=== PATIENT | female | born 1945 | race Caucasian/White ===

== ENCOUNTER 2016-06-02 10:07 | Emergency (ER) | payer MEDICARE, OTHER ==
--- NOTE | 2016-06-02 10:37 | EDM.PDOC ---
[id number]: LIGHT HEADED/DIZZY/FLUTTERY FEELING Time Seen by Provider: 06/02/16 10:20 Source: Reports: Patient History Limitations: Reports: No limitations - History of Present Illness INITIAL COMMENTS - FREE TEXT/NARRATIVE: 70-year-old female with intermittent palpitations and lightheadedness with some slight nausea has been having symptoms for several weeks. She discussed this with her primary physician 4 days ago and he tried to reassure her. This morning she had another episode of dizziness and lightheadedness, felt she was having palpitations and called the first responders. They mainly reassured her but she wanted to be checked out. No fevers or chills, some nausea but no vomiting. No chest pain, she does have intermittent shortness of breath. Severity: mild Associated Symptoms: Reports: loss of appetite, malaise, shortness of breath ( Intermittent), weakness. Denies: chest pain, cough, diaphoresis, fever/chills - Related Data Allergies/ADRs: Allergies Allergy/AdvReac Type Severity Reaction Status Date / Time doxycycline Allergy Cannot Verified 06/02/16 10:16 Remember Penicillins Allergy Difficulty Verified 06/02/16 10:16 Breathing Sulfa (Sulfonamide Allergy Rash Verified 06/02/16 10:16 Antibiotics) Home Meds: Home Meds Omeprazole [Prilosec] 20 mg PO BID 10/19/13 [History] Calcium Citrate/Vitamin D3 [Calcium Cit-Vit D 315-200] 1 each PO DAILY 12/04/13 [History] Cholecalciferol (Vitamin D3) [Vitamin D3] 400 unit PO DAILY 12/04/13 [History] Diclofenac Sodium [Voltaren 1% Gel] 1 applic TP QID PRN 12/04/13 [History] Fluticasone Propionate [Flovent] 1 puff IH BID PRN 12/04/13 [History] Multivit-Min/FA/Lycopene/Lut [Centrum Silver] 1 each PO DAILY 12/04/13 [History] Nitroglycerin [Nitrostat] 0.4 mg SL ASDIRECTED PRN 05/31/14 [History] Ranitidine [Zantac] 150 mg PO BEDTIME 05/31/14 [History] Past Medical History HEENT History: Reports: Cataract, Impaired vision Cardiovascular History: Reports: Arrhythmia, Heart murmur, Hypertension Gastrointestinal History: Reports: Bowel obstruction, GERD 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: Musculoskeletal History: Reports: Osteoarthritis Neurological History: Reports: Vertigo - Past Surgical History HEENT Surgical History: Reports: Cataract surgery Cardiovascular Surgical History: Reports: Other (see below) Other Cardiovascular Surgeries/Procedures: angiogram GI Surgical History: Reports: Cholecystectomy, Colonoscopy, EGD Female Surgical History: Reports: Hysterectomy, Salpingo-oophorectomy Social & Family History - Tobacco Use Smoking Status *Q: Never Smoker Second Hand Smoke Exposure: No - Alcohol Use Days Per Week of Alcohol Use: 0 - Recreational Drug Use Recreational Drug Use: No ED ROS GENERAL - Review of Systems Review Of Systems: See Below Constitutional: Reports: malaise, weakness. Denies: fever, chills Respiratory: Reports: Shortness of Breath Cardiovascular: Reports: Palpitations. Denies: Chest pain GI/Abdominal: Reports: Nausea. Denies: Abdominal pain : Reports: no symptoms Neurological: Reports: Dizziness. Denies: Headache Psychiatric: Reports: No symptoms ED EXAM, GENERAL - Physical Exam Exam: See Below Exam Limited By: No limitations General Appearance: alert, no apparent distress Eye Exam: bilateral eye: EOMI Respiratory/Chest: no respiratory distress, lungs clear Cardiovascular: regular rate, rhythm. No: extra beats GI/Abdominal: normal bowel sounds, soft, non tender Extremities: normal inspection. No: pedal edema Neurological: alert, oriented, no motor/sensory deficits Psychiatric: normal affect, normal mood Skin Exam: Warm, Dry EKG INTERPRETATION Rhythm: NSR Rate (beats/min): 114 Course - Vital Signs Last Recorded V/S: Last Vital Signs Temp 96.8 F 06/02/16 10:14 Pulse 86 06/02/16 13:29 Resp 15 06/02/16 13:29 BP 175/95 H 06/02/16 13:29 Pulse Ox 100 06/02/16 13:29 - Orders/Labs/Meds Orders: Active Orders 24 hr Category Date Time Status EKG Documentation Completion [RC] ASDIRECTED Care 06/02/16 11:09 Active EKG 12 Lead [EK] Routine Ther 06/02/16 11:09 Ordered Labs: Laboratory Tests 06/02/16 06/02/16 Range/Units 11:14 11:14 WBC 8.1 (4.5-11.0) K/uL RBC 4.70 (3.30-5.50) M/uL Hgb 14.2 (12.0-15.0) g/dL Hct 43.3 (36.0-48.0) % MCV 92 (80-98) fL MCH 30 (27-31) pg MCHC 33 (32-36) % Plt Count 199 (150-400) K/uL Neut % (Auto) 75 H (36-66) % Lymph % (Auto) 15 L (24-44) % [place] % (Auto) 8 H (2-6) % Eos % (Auto) 1 L (2-4) % Baso % (Auto) 1 (0-1) % Sodium 146 (140-148) mmol/L Potassium 4.4 (3.6-5.2) mmol/L Chloride 107 (100-108) mmol/L Carbon Dioxide 28 (21-32) mmol/L Anion Gap 10.6 (5.0-14.0) mmol/L BUN 14 (7-18) mg/dL Creatinine 1.0 (0.6-1.0) mg/dL Est Cr Clr Drug Dosing 41.40 mL/min Estimated GFR (MDRD) 55 L (>60) Glucose 95 (74-106) mg/dL Calcium 8.9 (8.5-10.1) mg/dL Total Bilirubin 0.6 (0.2-1.0) mg/dL AST 21 (15-37) U/L ALT 22 (12-78) U/L Alkaline Phosphatase 65 (46-116) U/L Troponin I 0.114 H* (0.000-0.056) ng/mL Total Protein 7.2 (6.4-8.2) g/dL Albumin 3.8 (3.4-5.0) g/dL Globulin 3.4 (2.3-3.5) g/dL Albumin/Globulin Ratio 1.1 L (1.2-2.2) Meds: Medications Discontinued Medications Generic Name Dose Route Start Last Admin Trade Name Freq PRN Reason Stop Dose Admin Aspirin 324 mg 06/02/16 12:20 06/02/16 12:24 Aspirin PO 06/02/16 12:21 324 mg ONETIME ONE Administration - Re-Assessments/Exams Free Text/Narrative Re-Assessment/Exam: 06/02/16 10:36 EKG was done that showed normal sinus tachycardia. No recent lab work was done so a CBC, CMP and troponin will be obtained and if those are reassuring she'll be set up for a Holter monitor unless she shows arrhythmias while waiting for lab results. 06/02/16 12:46 Patient was monitored for over 2 hours and continued to be in a sinus rhythm. CBC and CMP were reassuring, only abnormality being a GFR of 55. Her troponin however came back slightly elevated at 0.11. I discussed her case with the hospitalist service from [place] and after reviewing her records had an abnormal Cardiolite 2 years ago. I was informed that she had a normal angiogram following the Cardiolite and a post Cardiolite cardiology consultation listed very similar symptoms to what she is having now. After discussing this with the patient we elected to put her on a Holter monitor for 48 hours and followup with her primary care after the test. Departure - Departure Time of Disposition: 13:37 Disposition: Home, Self-Care 01 Condition: good Clinical Impression: Palpitations, Dizziness Instructions: Palpitations, [id number], Dizziness, [id number] Referrals: Mahendra Gentile MD [Primary Care Provider] - Forms: ED Department Discharge Care Plan Goals: To monitor for 48 hours as prescribed. Recheck next week after the test is completed, or return anytime if worsening or concerns. Continue your regular medications. - My Orders Last 24 Hours: My Active Orders 06/02/16 11:09 EKG Documentation Completion [RC] ASDIRECTED EKG 12 Lead [EK] Routine - Assessment/Plan Last 24 Hours: My Active Orders 06/02/16 11:09 EKG Documentation Completion [RC] ASDIRECTED EKG 12 Lead [EK] Routine
[2016-06-02] MEDS ORDERED: Aspirin 81 MG Tab.Chew PO ONE (12:20)
[2016-06-02 13:29] VITALS: BP 175/95
== END 2016-06-02 11:25 | disposition home or self-care (01) ==
LOC: JP.ED 10:07
DX: R00.2 Palpitations (principal); R42 Dizziness and giddiness; R01.1 Cardiac murmur, unspecified; I10 Essential (primary) hypertension; K21.9 Gastro-esophageal reflux disease without esophagitis; M19.90 Unspecified osteoarthritis, unspecified site; Z98.49 Cataract extraction status, unspecified eye; Z90.49 Acquired absence of other specified parts of digestive tract; Z90.710 Acquired absence of both cervix and uterus; Z79.899 Other long term (current) drug therapy; Z88.0 Allergy status to penicillin; Z88.2 Allergy status to sulfonamides; Z88.8 Allergy status to other drugs, medicaments and biological substances
CPT/HCPCS: 36415; 80053; 84484; 85025; 93005; 93225; 93226; 99285; A9270; 93010; 99284

== ENCOUNTER 2017-08-10 08:45 | Emergency (ER) | payer MEDICARE, OTHER ==
--- NOTE | 2017-08-10 10:40 | EDM.PDOC ---
ED HPI GENERAL MEDICAL PROBLEM - General Chief Complaint: Chest Pain Stated Complaint: CHEST PAIN, DIFFICULTY BREATHING, PAIN IN LEFT ARM Time Seen by Provider: 08/10/17 09:10 Source of Information: Reports: Patient History Limitations: Reports: No Limitations - History of Present Illness INITIAL COMMENTS - FREE TEXT/NARRATIVE: 72-year-old female comes in with intermittent chest pressure and tightness, sometimes radiating to the left arm. It's been going on for the last 5 days, she 's been under increased stress with pressure at home. She had a similar episode 2 or 3 years ago and thinks she had some testing. While here in the emergency room she has slight pressure but no shortness of breath or diaphoresis. Denies nausea or vomiting. No fevers or chills, denies cough. She is leaving on a trip for a couple of days coming up and is anxious about that as well, her has COPD and is very difficult to take care of. Onset: Gradual (Over the past several days) Chest Pain Score (Numeric/FACES): 6 - Related Data Allergies Allergy/AdvReac Type Severity Reaction Status Date / Time doxycycline Allergy Cannot Verified 08/10/17 09:10 Remember Penicillins Allergy Difficulty Verified 08/10/17 09:10 Breathing Sulfa (Sulfonamide Allergy Rash Verified 08/10/17 09:10 Antibiotics) Home Meds: Home Meds Omeprazole [Prilosec] 20 mg PO BID 10/19/13 [History] Calcium Citrate/Vitamin D3 [Calcium Cit-Vit D 315-200] 1 each PO DAILY 12/04/13 [History] Cholecalciferol (Vitamin D3) [Vitamin D3] 400 unit PO DAILY 12/04/13 [History] Diclofenac Sodium [Voltaren 1% Gel] 1 applic TP QID PRN 12/04/13 [History] Fluticasone Propionate [Flovent] 1 puff IH BID PRN 12/04/13 [History] Multivit-Min/FA/Lycopene/Lut [Centrum Silver] 1 each PO DAILY 12/04/13 [History] Nitroglycerin [Nitrostat] 0.4 mg SL ASDIRECTED PRN 05/31/14 [History] Past Medical History HEENT History: Reports: Cataract, Impaired Vision Cardiovascular History: Reports: Arrhythmia, Heart Murmur, Hypertension Gastrointestinal History: Reports: Bowel Obstruction, Cholelithiasis, 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: Musculoskeletal History: Reports: Osteoarthritis Neurological History: Reports: Vertigo - Past Surgical History HEENT Surgical History: Reports: Cataract Surgery GI Surgical History: Reports: Cholecystectomy Female Surgical History: Reports: Hysterectomy, Salpingo-Oophorectomy Social & Family History - Tobacco Use Smoking Status *Q: Never Smoker - Caffeine Use Caffeine Use: Reports: None - Recreational Drug Use Recreational Drug Use: No ED ROS GENERAL - Review of Systems Review Of Systems: See Below Constitutional: Denies: Fever, Chills Respiratory: Reports: Shortness of Breath Cardiovascular: Reports: Chest Pain, Palpitations GI/Abdominal: Denies: Abdominal Pain, Nausea, Vomiting Neurological: Reports: No Symptoms Psychiatric: Reports: Anxiety ED EXAM, GENERAL - Physical Exam Exam: See Below Exam Limited By: No Limitations General Appearance: Alert, No Apparent Distress Respiratory/Chest: No Respiratory Distress, Lungs Clear Cardiovascular: Regular Rate, Rhythm GI/Abdominal: Soft, Non-Tender Extremities: Normal Inspection Neurological: Alert, Oriented Psychiatric: Normal Affect, Normal Mood Skin Exam: Warm, Dry EKG INTERPRETATION EKG Date: 08/10/17 Rhythm: NSR Course - Vital Signs Last Recorded V/S: Last Vital Signs Temp 96.2 F 08/10/17 09:07 Pulse 72 08/10/17 11:00 Resp 16 08/10/17 11:00 BP 163/81 H 08/10/17 11:00 Pulse Ox 97 08/10/17 11:00 - Orders/Labs/Meds Orders: Active Orders 24 hr Category Date Time Status EKG Documentation Completion [RC] ASDIRECTED Care 08/10/17 09:32 Active EKG 12 Lead [EK] Routine Ther 08/10/17 09:32 Ordered Labs: Laboratory Tests 08/10/17 08/10/17 Range/Units 09:37 09:37 WBC 5.8 (4.5-11.0) K/uL RBC 4.36 (3.30-5.50) M/uL Hgb 13.2 (12.0-15.0) g/dL Hct 40.7 (36.0-48.0) % MCV 93 (80-98) fL MCH 30 (27-31) pg MCHC 32 (32-36) % Plt Count 174 (150-400) K/uL Neut % (Auto) 63 (36-66) % Lymph % (Auto) 25 (24-44) % [place] % (Auto) 9 H (2-6) % Eos % (Auto) 4 (2-4) % Baso % (Auto) 1 (0-1) % Sodium 141 (140-148) mmol/L Potassium 4.1 (3.6-5.2) mmol/L Chloride 105 (100-108) mmol/L Carbon Dioxide 29 (21-32) mmol/L Anion Gap 7.0 (5.0-14.0) mmol/L BUN 13 (7-18) mg/dL Creatinine 1.1 H (0.6-1.0) mg/dL Est Cr Clr Drug Dosing 36.08 mL/min Estimated GFR (MDRD) 49 L (>60) Glucose 88 (74-106) mg/dL Calcium 8.8 (8.5-10.1) mg/dL Troponin I < 0.017 (0.000-0.056) ng/mL - Re-Assessments/Exams Free Text/Narrative Re-Assessment/Exam: 08/10/17 10:41 EKG was done on arrival which is normal. CBC, CMP and troponin were obtained. While waiting for lab results the patient was kept on cardiac monitoring which was stable, and her past clinical records reviewed. She was seen for the same symptoms 2-1/2 years ago, a stress test appeared abnormal but a follow-up angiogram was completely normal. The symptoms tend to come and go, worse during times of stress. She had several episodes of mild chest pressure while in the emergency room, they were brief. Departure - Departure Time of Disposition: 11:10 Disposition: Home, Self-Care 01 Condition: Good Clinical Impression: Atypical chest pain - Discharge Information Instructions: Nonspecific Chest Pain, [id number] Referrals: Mahendra Gentile MD [Primary Care Provider] - Forms: ED Department Discharge Care Plan Goals: Continue your current medications, diet and activity as tolerated. If you're continuing to have symptoms when you return for verification, consider another stress test. - My Orders Last 24 Hours: My Active Orders 08/10/17 09:32 EKG Documentation Completion [RC] ASDIRECTED EKG 12 Lead [EK] Routine - Assessment/Plan Last 24 Hours: My Active Orders 08/10/17 09:32 EKG Documentation Completion [RC] ASDIRECTED EKG 12 Lead [EK] Routine
[2017-08-10 11:16] VITALS: BP 163/81
== END 2017-08-10 11:10 | disposition home or self-care (01) ==
LOC: JP.ED 08:45
DX: R07.89 Other chest pain (principal); I10 Essential (primary) hypertension; K21.9 Gastro-esophageal reflux disease without esophagitis; M19.90 Unspecified osteoarthritis, unspecified site; Z79.899 Other long term (current) drug therapy; Z88.1 Allergy status to other antibiotic agents; Z88.2 Allergy status to sulfonamides; Z88.0 Allergy status to penicillin
CPT/HCPCS: 36415; 80048; 84484; 85025; 93005; 99285-25

== ENCOUNTER 2017-10-12 06:46 | Day surgery (SDC) | payer MEDICARE, OTHER ==
[2017-10-12] MEDS ORDERED: Propofol 200 MG/20 ML SDV ONE (07:31)
[2017-10-12] MEDS ORDERED: fentaNYL 100 MCG/2 ML SDV ONE (07:31)
[2017-10-12] MEDS: Sodium Chloride 0.9% 1,000 ML IV SCH (07:37)
[2017-10-12 09:50] VITALS: BP 148/80
--- NOTE | 2017-10-12 10:47 | OR ---
DATE OF PROCEDURE: 10/12/2017 PROCEDURE PERFORMED: 1. EGD. 2. Yang wireless pH monitoring placement. COMPLICATIONS: None. ASSOCIATE ENTERTAINMENT EDITOR: None. ANESTHESIA: MAC. PREOPERATIVE DIAGNOSIS: Concern for reflux/epigastric pain. POSTOPERATIVE DIAGNOSIS: Concern for reflux/epigastric pain. RISKS: Risks, benefits, alternatives, and limitations including, but not limited to infection, bleeding, perforation, dislodgement of the device, and other risks not listed here were explained to the patient, who wished to proceed. PROCEDURE IN DETAIL: The patient was placed in left lateral decubitus position. The EGD scope was introduced and advanced atraumatically to the second part of the duodenum. No duodenitis. No ulceration. No gastritis or abnormalities in the stomach. The Z-line was measured at 39 cm. The esophagus was normal. The scope was removed. The Yang device was introduced and clipped 6 cm proximal to the junction. This was clipped in the standard fashion by placement, proper orientation, and application of suction with waiting for 30 seconds, deployment and then reinspection with the EGD scope. The patient tolerated the procedure well. Rich Bowen MD /[id number]
== END 2017-10-12 09:45 | disposition home or self-care (01) ==
LOC: JP.SDS 06:46
PROVIDERS: ATTEND Surgery
DX: R10.13 Epigastric pain (principal); K21.9 Gastro-esophageal reflux disease without esophagitis; J43.9 Emphysema, unspecified; I10 Essential (primary) hypertension
CPT/HCPCS: J2704; J3010; J7030

== ENCOUNTER 2018-12-21 09:04 | Day surgery (SDC) | payer MEDICARE, OTHER ==
[2018-12-21] MEDS ORDERED: Lactated Ringers 1,000 ML IV SCH (09:45)
[2018-12-21] MEDS ORDERED: Propofol 200 MG/20 ML SDV ONE (10:49)
[2018-12-21] MEDS ORDERED: fentaNYL 100 MCG/2 ML SDV ONE (10:49)
[2018-12-21] MEDS ORDERED: Midazolam 1 MG/ML 2 ML SDV ONE (10:49)
[2018-12-21 13:22] VITALS: PULSE 78
[2018-12-21 14:05] VITALS: BP 152/75
--- NOTE | 2018-12-22 08:05 | OR ---
DATE OF PROCEDURE: 12/21/2018 SURGEON: Raudel Storey MD PREOPERATIVE DIAGNOSIS: History of colon polyps. POSTOPERATIVE DIAGNOSIS: Unremarkable colonoscopy. History of colon polyps. PROCEDURE: Colonoscopy to the cecum. ANESTHESIA: IV anesthesia with monitored anesthesia care. INDICATION: This 73-year-old white female is referred for a colonoscopy. She says she has a history of a colon polyp removed 5 years ago. I counseled her for the procedure, including risks and alternatives, and she gave her informed consent to proceed. DESCRIPTION OF PROCEDURE: The patient was placed in the left lateral decubitus position. IV anesthesia was administered by the anesthesia service. Time-out was held. A rectal exam was performed, which was unremarkable. The flexible video Olympus colonoscope was introduced through her anus, up her rectum and out her colon, all way to the cecum. Once the cecum was reached, the scope was slowly withdrawn examining the mucosa throughout. No mucosal abnormalities were noted. We attempted to retroflex the scope in the rectum, but it would not. We did get a good view of the distal rectum higher up. The scope was then removed. She tolerated the procedure well. Raudel Storey MD /[id number]
== END 2018-12-21 14:00 | disposition home or self-care (01) ==
LOC: JP.SDS 09:04
PROVIDERS: ATTEND Surgery
DX: Z12.11 Encounter for screening for malignant neoplasm of colon (principal); I10 Essential (primary) hypertension; J44.9 Chronic obstructive pulmonary disease, unspecified; Z86.010 Personal history of colon polyps
CPT/HCPCS: J2250; J2704; J3010; J7120

== ENCOUNTER 2020-08-13 20:00 | Inpatient (IN) | payer MEDICARE, OTHER ==
[2020-08-13] MEDS ORDERED: Acetaminophen 325 MG Tab PO ONE (23:03)
[2020-08-13] MEDS ORDERED: Ondansetron 4 MG/2 ML SDV IVPUSH ONE (23:05)
--- NOTE | 2020-08-13 23:05 | EDM.PDOC ---
ED HPI GENERAL MEDICAL PROBLEM - General Chief Complaint: Headache Stated Complaint: HEADACHE Time Seen by Provider: 08/13/20 23:04 Source of Information: Reports: Patient History Limitations: Reports: No Limitations - History of Present Illness INITIAL COMMENTS - FREE TEXT/NARRATIVE: pt arrived with a headache fever rt ear pain. She is nauseated at timeas. Onset: Gradual Duration: Day(s): Location: Reports: Generalized Associated Symptoms: Reports: Fever/Chills, Headaches Upper Headache Pain Score (Numeric/FACES): 9 - Related Data Allergies Allergy/AdvReac Type Severity Reaction Status Date / Time Penicillins Allergy Intermediate Difficulty Verified 08/14/20 07:15 Breathing aspirin Allergy Other Verified 08/13/20 21:45 doxycycline Allergy Cannot Verified 08/13/20 21:45 Remember levofloxacin [From Levaquin] Allergy Other Verified 08/13/20 21:45 Sulfa (Sulfonamide Allergy Rash Verified 08/13/20 21:45 Antibiotics) venlafaxine [From Effexor] Allergy Other Verified 08/13/20 21:45 Home Meds: Home Meds Cholecalciferol (Vitamin D3) [Vitamin D3] 400 unit PO DAILY 12/04/13 [History] Diclofenac Sodium [Voltaren 1% Gel] 4 g TP QID PRN 12/04/13 [History] Multivit-Min/FA/Lycopene/Lut [Centrum Silver] 0.5 tab PO BID 12/04/13 [History] Calcium Carb/Vitamin D3/Vit K1 [Viactiv Soft Chew] 1 tab PO QAM 10/08/17 [History] L.acidoph,Paracasei, B.lactis [Probiotic] 1 cap PO BIDMEALS 10/08/17 [History] Vitamin B Complex [B Complex] 1 tab PO DAILY 12/19/18 [History] Fluticasone Propionate [Flonase] 2 spray BRITTNEE DAILY 05/16/19 [History] Calcium Carb/Vitamin D3/Vit K1 [Viactiv 650 mg-12.5 Mcg Chew] 1 tab PO DAILY 08/14/20 [History] Metoprolol Succinate 50 mg PO DAILY 08/14/20 [History] Montelukast [Singulair] 10 mg PO DAILY 08/14/20 [History] Omeprazole/Sodium Bicarbonate [Omeprazole-Bicarb 40-1,100 Cap] 40 mg PO DAILY 08/14/20 [History] Doxycycline [Vibramycin] 100 mg PO Q12H #16 cap 08/16/20 [Rx] Past Medical History HEENT History: Reports: Allergic Rhinitis, Cataract, Impaired Vision, Sinusitis Cardiovascular History: Reports: Arrhythmia, Heart Murmur, Hypertension Gastrointestinal History: Reports: Bowel Obstruction, Cholelithiasis, Colon Polyp, GERD Genitourinary History: Reports: UTI, Recurrent [employer] History: Reports: Fibroids, Musculoskeletal History: Reports: Fracture, Neck Pain, Chronic, Osteoarthritis Neurological History: Reports: Vertigo Endocrine/Metabolic History: Reports: Osteopenia - Infectious Disease History Infectious Disease History: Reports: Measles - Past Surgical History HEENT Surgical History: Reports: Cataract Surgery Cardiovascular Surgical History: Reports: None Other Cardiovascular Surgeries/Procedures: angiogram GI Surgical History: Reports: Cholecystectomy, Colonoscopy, EGD Female Surgical History: Reports: Hysterectomy, Salpingo-Oophorectomy Endocrine Surgical History: Reports: None Neurological Surgical History: Reports: None Musculoskeletal Surgical History: Reports: None Social & Family History - Tobacco Use Tobacco Use Status *Q: Never Tobacco User - Caffeine Use Caffeine Use: Reports: None - Recreational Drug Use Recreational Drug Use: No ED ROS GENERAL - Review of Systems Review Of Systems: See Below Constitutional: Reports: Fever, Chills, Malaise, Weakness, Other (headaches) HEENT: Reports: No Symptoms Respiratory: Reports: No Symptoms Cardiovascular: Reports: No Symptoms Endocrine: Reports: No Symptoms GI/Abdominal: Reports: Nausea : Reports: No Symptoms Musculoskeletal: Reports: No Symptoms Skin: Reports: No Symptoms Neurological: Reports: No Symptoms Psychiatric: Reports: Anxiety - Physical Exam Exam: See Below Text/Narrative:: pt hurts all over. She has had chills. She is having a severe headache. Exam Limited By: No Limitations General Appearance: Alert, Anxious, Moderate Distress Ears: Normal TMs, Other (pt has alot of very hard wax in th ear canals. ) Nose: Normal Inspection Throat/Mouth: Normal Inspection Head Exam: Atraumatic, Other (pupils equal and reactive. ) Neck: Normal Inspection Respiratory/Chest: No Respiratory Distress Cardiovascular: Regular Rate, Rhythm GI/Abdominal: Soft, Non-Tender (Female) Exam: Deferred Rectal (Female) Exam: Deferred Neuro Exam (Abbreviated): Alert, Oriented, Normal Cognition Back Exam: Normal Inspection Extremities: Normal Inspection Psychiatric: Anxious Course - Vital Signs Last Recorded V/S: Last Vital Signs Temp 35.5 C L 08/16/20 07:37 Pulse 58 L 08/16/20 09:24 Resp 16 08/16/20 07:37 BP 143/73 H 08/16/20 09:24 Pulse Ox 100 08/16/20 07:37 - Orders/Labs/Meds Labs: Laboratory Tests 08/13/20 08/13/20 08/13/20 Range/Units 22:30 22:30 22:30 WBC (4.5-11.0) K/uL RBC (3.30-5.50) M/uL Hgb (12.0-15.0) g/dL Hct (36.0-48.0) % MCV (80-98) fL MCH (27-31) pg MCHC (32-36) % Plt Count (150-400) K/uL Neut % (Auto) (36-66) % Lymph % (Auto) (24-44) % [place] % (Auto) (2-6) % Eos % (Auto) (2-4) % Baso % (Auto) (0-1) % Sodium 132 L (140-148) mmol/L Potassium 4.0 (3.6-5.2) mmol/L Chloride 97 L (100-108) mmol/L Carbon Dioxide 24 (21-32) mmol/L Anion Gap 15.0 H (5.0-14.0) mmol/L BUN 12 (7-18) mg/dL Creatinine 1.1 H (0.6-1.0) mg/dL Est Cr Clr Drug Dosing 33.48 mL/min Estimated GFR (MDRD) 48 L (>60) Glucose 125 H (74-106) mg/dL Lactic Acid 1.0 (0.4-2.0) mmol/L Calcium 8.3 L (8.5-10.1) mg/dL Total Bilirubin 1.2 H D (0.2-1.0) mg/dL AST 53 H D (15-37) U/L ALT 47 D (12-78) U/L Alkaline Phosphatase 80 (46-116) U/L C-Reactive Protein 5.06 H (0.0-0.3) mg/dL Total Protein 5.9 L (6.4-8.2) g/dL Albumin 3.2 L (3.4-5.0) g/dL Globulin 2.7 (2.3-3.5) g/dL Albumin/Globulin Ratio 1.2 (1.2-2.2) Urine Color (YELLOW) Urine Appearance (CLEAR) Urine pH (5.0-8.0) Ur Specific [place] (1.008-1.030) Urine Protein (NEGATIVE) mg/dL Urine Glucose (UA) (NEGATIVE) mg/dL Urine Ketones (NEGATIVE) mg/dL Urine Occult Blood (NEGATIVE) Urine Nitrite (NEGATIVE) Urine Bilirubin (NEGATIVE) Urine Urobilinogen (0.2-1.0) EU/dL Ur Leukocyte Esterase (NEGATIVE) Urine RBC (0-5) Urine WBC (0-5) Ur Epithelial Cells Amorphous Sediment Urine Bacteria Urine Mucus Babesia microti IgG Ab (Neg:<1:10) Babesia microti IgM Ab (Neg:<1:10) Lyme Disease IgG/IgM (0.00-0.90) ISR Influenza Type A RNA (NEGATIVE) RSV RNA (INAAT) (NEGATIVE) Influenza Type B RNA (NEGATIVE) SARS-CoV-2 RNA (PRESTON) (NEGATIVE) 08/13/20 08/13/20 08/14/20 Range/Units 22:59 22:59 00:46 WBC 2.9 L (4.5-11.0) K/uL RBC 4.11 (3.30-5.50) M/uL Hgb 12.5 (12.0-15.0) g/dL Hct 38.1 (36.0-48.0) % MCV 93 (80-98) fL MCH 30 (27-31) pg MCHC 33 (32-36) % Plt Count 73 L (150-400) K/uL Neut % (Auto) 80.2 H (36-66) % Lymph % (Auto) 8.0 L (24-44) % [place] % (Auto) 11.5 H (2-6) % Eos % (Auto) 0.0 L (2-4) % Baso % (Auto) 0.3 (0-1) % Sodium (140-148) mmol/L Potassium (3.6-5.2) mmol/L Chloride (100-108) mmol/L Carbon Dioxide (21-32) mmol/L Anion Gap (5.0-14.0) mmol/L BUN (7-18) mg/dL Creatinine (0.6-1.0) mg/dL Est Cr Clr Drug Dosing mL/min Estimated GFR (MDRD) (>60) Glucose (74-106) mg/dL Lactic Acid (0.4-2.0) mmol/L Calcium (8.5-10.1) mg/dL Total Bilirubin (0.2-1.0) mg/dL AST (15-37) U/L ALT (12-78) U/L Alkaline Phosphatase (46-116) U/L C-Reactive Protein (0.0-0.3) mg/dL Total Protein (6.4-8.2) g/dL Albumin (3.4-5.0) g/dL Globulin (2.3-3.5) g/dL Albumin/Globulin Ratio (1.2-2.2) Urine Color (YELLOW) Urine Appearance (CLEAR) Urine pH (5.0-8.0) Ur Specific Rodman (1.008-1.030) Urine Protein (NEGATIVE) mg/dL Urine Glucose (UA) (NEGATIVE) mg/dL Urine Ketones (NEGATIVE) mg/dL Urine Occult Blood (NEGATIVE) Urine Nitrite (NEGATIVE) Urine Bilirubin (NEGATIVE) Urine Urobilinogen (0.2-1.0) EU/dL Ur Leukocyte Esterase (NEGATIVE) Urine RBC (0-5) Urine WBC (0-5) Ur Epithelial Cells Amorphous Sediment Urine Bacteria Urine Mucus Babesia microti IgG Ab (Neg:<1:10) Babesia microti IgM Ab (Neg:<1:10) Lyme Disease IgG/IgM <0.91 (0.00-0.90) ISR Influenza Type A RNA Negative (NEGATIVE) RSV RNA (INAAT) Negative (NEGATIVE) Influenza Type B RNA Negative (NEGATIVE) SARS-CoV-2 RNA (PRESTON) Negative (NEGATIVE) 08/14/20 08/14/20 Range/Units 00:46 00:52 WBC (4.5-11.0) K/uL RBC (3.30-5.50) M/uL Hgb (12.0-15.0) g/dL Hct (36.0-48.0) % MCV (80-98) fL MCH (27-31) pg MCHC (32-36) % Plt Count (150-400) K/uL Neut % (Auto) (36-66) % Lymph % (Auto) (24-44) % [place] % (Auto) (2-6) % Eos % (Auto) (2-4) % Baso % (Auto) (0-1) % Sodium (140-148) mmol/L Potassium (3.6-5.2) mmol/L Chloride (100-108) mmol/L Carbon Dioxide (21-32) mmol/L Anion Gap (5.0-14.0) mmol/L BUN (7-18) mg/dL Creatinine (0.6-1.0) mg/dL Est Cr Clr Drug Dosing mL/min Estimated GFR (MDRD) (>60) Glucose (74-106) mg/dL Lactic Acid (0.4-2.0) mmol/L Calcium (8.5-10.1) mg/dL Total Bilirubin (0.2-1.0) mg/dL AST (15-37) U/L ALT (12-78) U/L Alkaline Phosphatase (46-116) U/L C-Reactive Protein (0.0-0.3) mg/dL Total Protein (6.4-8.2) g/dL Albumin (3.4-5.0) g/dL Globulin (2.3-3.5) g/dL Albumin/Globulin Ratio (1.2-2.2) Urine Color Yellow (YELLOW) Urine Appearance Clear (CLEAR) Urine pH 6.0 (5.0-8.0) Ur Specific [place]man 1.015 (1.008-1.030) Urine Protein Negative (NEGATIVE) mg/dL Urine Glucose (UA) Negative (NEGATIVE) mg/dL Urine Ketones Trace H (NEGATIVE) mg/dL Urine Occult Blood Trace-lysed H (NEGATIVE) Urine Nitrite Negative (NEGATIVE) Urine Bilirubin Negative (NEGATIVE) Urine Urobilinogen 0.2 (0.2-1.0) EU/dL Ur Leukocyte Esterase Negative (NEGATIVE) Urine RBC 0-5 (0-5) Urine WBC 0-5 (0-5) Ur Epithelial Cells Rare Amorphous Sediment Not seen Urine Bacteria Many Urine Mucus Not seen Babesia microti IgG Ab <1:10 (Neg:<1:10) Babesia microti IgM Ab <1:10 (Neg:<1:10) Lyme Disease IgG/IgM (0.00-0.90) ISR Influenza Type A RNA (NEGATIVE) RSV RNA (INAAT) (NEGATIVE) Influenza Type B RNA (NEGATIVE) SARS-CoV-2 RNA (PRESTON) (NEGATIVE) Meds: Medications Discontinued Medications Generic Name Dose Route Start Last Admin Trade Name Freq PRN Reason Stop Dose Admin Acetaminophen 650 mg 08/13/20 23:03 08/13/20 23:15 Acetaminophen 325 Mg Tab PO 08/13/20 23:04 650 mg NOW ONE Administration Acetaminophen 650 mg 08/14/20 03:21 08/16/20 03:45 Acetaminophen 325 Mg Tab PO 650 mg Q4H PRN Administration Pain Calcium Carbonate 1 tab 08/15/20 08:00 08/16/20 07:44 Calcium Carbonate/Vitamin D3 1500 Mg-400 Units Tab PO 1 tab DAILY@0800 CM Administration Ceftriaxone Sodium 1 gm 08/14/20 21:00 Ceftriaxone 1 Gm Vial IM BEDTIME CM Cholecalciferol 12.5 mcg 08/15/20 09:00 08/16/20 09:26 Cholecalciferol (Vitamin D3) 25 Mcg Tab PO 12.5 mcg DAILY CM Administration Diphenhydramine HCl 50 mg 08/14/20 09:50 Diphenhydramine 50 Mg/Ml Sdv IVPUSH ONETIME PRN Anaphylaxis Docusate Sodium 200 mg 08/15/20 09:45 08/16/20 09:21 Docusate Sodium 100 Mg Cap PO 200 mg DAILY CM Administration Doxycycline Hyclate 100 mg 08/15/20 21:00 08/16/20 09:25 Doxycycline 100 Mg Cap PO 08/24/20 21:01 100 mg Q12H CM Administration Epinephrine HCl 0.5 mg 08/14/20 09:50 Epinephrine 1 Mg/Ml Sdv IM ONETIME PRN anaphylaxis Fluticasone Propionate 0 gm 08/14/20 10:00 08/16/20 09:20 Fluticasone Propionate Nasal [place] 16 Gm Bottle BRITTNEE Not Given DAILY CM Hydromorphone HCl 0.5 mg 08/14/20 02:18 08/14/20 02:26 Hydromorphone 0.5 Mg/0.5 Ml Syringe IVPUSH 08/14/20 02:19 0.5 mg ONETIME ONE Administration Sodium Chloride 1,000 mls @ 250 mls/hr 08/13/20 23:15 08/13/20 23:04 Normal Saline IV 250 mls/hr ASDIRECTED CM Administration Ceftriaxone Sodium 2 gm/ 50 mls @ 100 mls/hr 08/14/20 00:27 08/14/20 00:50 Sodium Chloride IV 08/14/20 00:56 100 mls/hr ONETIME ONE Administration Sodium Chloride 1,000 mls @ 150 mls/hr 08/14/20 00:45 08/14/20 00:44 Normal Saline IV 250 mls/hr ASDIRECTED MC Administration Sodium Chloride 1,000 mls @ 150 mls/hr 08/14/20 03:30 08/15/20 08:43 Normal Saline IV 150 mls/hr ASDIRECTED CM Administration Doxycycline Hyclate 100 mg/ 100 mls @ 100 mls/hr 08/14/20 10:00 08/15/20 10:03 Sodium Chloride IV 08/23/20 22:59 100 mls/hr Q12H CM Administration Ceftriaxone Sodium 1 gm/ 50 mls @ 100 mls/hr 08/14/20 21:00 Sodium Chloride IV BEDTIME CM Ketorolac Tromethamine 30 mg 08/14/20 00:36 08/14/20 00:47 Ketorolac 30 Mg/Ml Sdv IVPUSH 08/14/20 00:37 30 mg ONETIME ONE Administration Ketorolac Tromethamine 30 mg 08/14/20 06:30 Ketorolac 30 Mg/Ml Sdv IVPUSH 08/19/20 06:31 Q6H PRN Pain Lactobacillus Rhamnosus 1 cap 08/14/20 17:00 08/16/20 07:44 Lactobacillus Rhamnosus Gg (Probiotic) Cap PO 1 cap BIDMEALS CM Administration Metoprolol Succinate 25 mg 08/14/20 09:00 08/14/20 09:36 Metoprolol Succinate 25 Mg Tab.Er PO Not Given DAILY CM Metoprolol Succinate 50 mg 08/15/20 17:15 08/16/20 09:24 Metoprolol Succinate 50 Mg Tab.Er PO 50 mg DAILY CM Administration Montelukast Sodium 10 mg 08/14/20 10:00 08/16/20 09:22 Montelukast 10 Mg Tab PO Not Given DAILY CM Multivitamins/Minerals 0.5 tab 08/14/20 21:00 08/16/20 09:23 Multivitamins With Iron/Calcium/Folic Acid/Minerals Tab PO 0.5 tab BID CM Administration Ondansetron HCl 4 mg 08/13/20 23:05 08/13/20 23:15 Ondansetron 4 Mg/2 Ml Sdv IVPUSH 08/13/20 23:06 4 mg ONETIME ONE Administration Ondansetron HCl 4 mg 08/14/20 03:21 Ondansetron 4 Mg/2 Ml Sdv IVPUSH Q4H PRN Nausea/Vomiting Pantoprazole Sodium 40 mg 08/14/20 11:00 08/16/20 07:44 Pantoprazole 40 Mg Tab.Cr PO 40 mg ACBREAKFAST CM Administration Potassium Chloride 20 meq 08/15/20 17:00 08/15/20 17:05 Potassium Chloride 20 Meq Tab.Er PO 08/15/20 17:01 20 meq ONETIME ONE Administration Vitamin B Complex 1 each 08/15/20 09:00 08/16/20 09:24 Vitamin B Complex Tab PO 1 each DAILY CM Administration - Re-Assessments/Exams Free Text/Narrative Re-Assessment/Exam: 08/14/20 02:21 pt has a wbc of 2.7. She has low platlets and she has elevated liver enzymes. Her Covid test is neg. 08/14/20 02:33 pt had tick studies drawn. She is very weak and not able to care for herself at home. Departure - Departure Time of Disposition: 02:26 Disposition: Admitted As Inpatient 66 Condition: Fair Clinical Impression: Anaplasmosis - Discharge Information Sepsis Event Note (ED) - Evaluation Sepsis Screening Result: No Definite Risk
[2020-08-13] MEDS ORDERED: Sodium Chloride 0.9% 1,000 ML IV SCH (23:15)
[2020-08-14 00:09] LABS: CORONAVIRUS COVID-19 NAA NEGATIVE (NEGATIVE)
[2020-08-14] MEDS ORDERED: cefTRIAXone 2 GM in Sodium Chloride 0.9% 50 ML IV ONE (00:27)
[2020-08-14] MEDS ORDERED: Ketorolac 30 MG/ML SDV IVPUSH ONE (00:36)
[2020-08-14] MEDS ORDERED: Sodium Chloride 0.9% 1,000 ML IV SCH (00:45)
[2020-08-14] MEDS ORDERED: HYDROmorphone 0.5 MG/0.5 ML Syringe IVPUSH ONE (02:18)
[2020-08-14] MEDS ORDERED: Ondansetron 4 MG/2 ML SDV IVPUSH PRN (03:21)
--- NOTE | 2020-08-14 06:02 | HP ---
IDENTIFYING DATA: Sofia Hardy is a 75-year-old female from [facility] [place]. CHIEF COMPLAINT: Headache. HISTORY OF PRESENT ILLNESS: A previously well adult female, [place], noted onset of a [id number] frontal headache pain with occasional visual distortion, fevers, chills, and anorexia 3 to 4 days ago. Home temperatures were elevated at greater than 103 degrees by the patient's report. She developed nausea and accompanying emesis without hematemesis today. She has had no scotomata or hearing changes; no neck pain; denies cough, congestion, shortness of breath, or sputum production; no diarrhea or change in voiding patterns. She does report tick bites earlier this summer, though reports the last recognized tick removed at home was 1 to 2 months ago. No recent tick bites. No evidence of skin rashes. She denies acute arthralgias. PAST MEDICAL HISTORY: She has a noted history of hypertension with pharmacologic therapy. PREVIOUS SURGERIES: Include hysterectomy and cholecystectomy in the remote past. ALLERGIES: REPORTED TO ASPIRIN, DOXYCYCLINE, LEVOFLOXACIN, PENICILLIN, SULFA, AND VENLAFAXINE. CURRENT MEDICATIONS: Vitamin D3, 400 units daily; diclofenac gel applied q.i.d. p.r.n. for arthralgias; multivitamin one daily; calcium carbonate with vitamin D3 one tablet daily; vitamin B complex one daily; fluticasone nasal spray two sprays to nares daily; metoprolol succinate, dose unknown, one tablet daily; and montelukast 10 mg daily. HABITS: Nonsmoker. No alcohol use. Rare use of caffeinated beverages. IMMUNIZATIONS: She has not received routine influenza vaccines. She has refused COVID vaccines, denies personal or familial history of COVID infection or recent acute respiratory infection. SOCIAL HISTORY: She resides with her elderly . She reports he has a history of type 2 diabetes and advanced obstructive pulmonary disease with oxygen requirements. She provides care for his needs as well as household maintenance, shopping, and transportation. FAMILY HISTORY: No acute familial history of similar fever, headache, or acute respiratory symptoms. REVIEW OF SYSTEMS: NEUROLOGIC: Frontal headache. She denies hearing loss. Corrective lenses are worn. No history of stroke, seizures, or focal weakness. CARDIAC: Known history of hypertension. She denies a history of coronary artery disease, chest pain, palpitations, shortness of breath, or diabetes. RESPIRATORY: No history of asthma, emphysema, sputum production, recent URIs, tuberculosis, or pleuritic pain. No shortness of breath. GASTROINTESTINAL: Nausea and anorexia are noted today. Previous cholecystectomy. No history of hepatitis or chronic dyspepsia. Intermittent heartburn is managed with p.r.n. use of [id number] antacids. Bowel movements are regular without diarrhea, melena, or hematochezia. GENITOURINARY: No chronic renal disease. No urinary incontinence. MUSCULOSKELETAL: Intermittent arthralgias. No acute inflammatory arthritic pain. PHYSICAL EXAMINATION: GENERAL: Appearance is that of an adult female in moderate discomfort secondary to acute febrile symptoms. VITAL SIGNS: Initial vitals include a temperature of 36.7 degrees centigrade, pulse 64, respiratory rate 14, blood pressure 136/53, and O2 sats 99% on room air. HEENT: Hearing is intact. Pupils are equal and reactive to light. No photophobia. Extraocular eye movements are intact without nystagmus. She accommodates appropriately. No nasal congestion, facial asymmetries, or slurred speech. Oral mucosa is slightly dry. NECK: Brisk carotid pulses. No nuchal rigidity or meningismus. No stridor. No carotid bruits. LUNGS: Symmetrical, clear, resonant, and non-tachypneic. HEART: Regular without murmurs or gallops noted. ABDOMEN: Nondistended with active sounds. No organomegaly. No tenderness along the costal margins. Mild discomfort to deep palpation at the epigastrium. No guarding, rebound, or referred pain or CVA tenderness. VASCULAR: She has good femoral pulses. EXTREMITIES: Warm and pink. Good turgor. Intact pulses at the radial and posterior tibial region. Brisk capillary refill. No pitting edema. SKIN: Nonjaundiced. NEUROLOGIC: Sensorium is intact. She is oriented x3. Good long- and short-term memory. LABORATORIES ON ADMISSION: Sodium 132, potassium 4, BUN 12, creatinine 1.1, GFR 48, and glucose 125 in a nonfasting state. AST is elevated at 53 with ALT of 47 and alkaline phosphatase 80. C-reactive protein is high at 5.06. WBC is diminished at 2.9 with 80% neutrophils, 8% lymphocytes, and 11% monocytes; hemoglobin 12.5; and platelet count low at 73,000. Urinalysis: Trace ketones, negative dipstick otherwise. Swab for influenza, RSV, and COVID-19 is noted to be negative. IMPRESSION: 1. Acute febrile presentation with accompanying headache, nausea, and anorexia with leukopenia and thrombocytopenia as well as elevated liver functions suggest underlying anaplasmosis. 2. History of hypertension, chronic, stable. PLAN: The patient notes with general symptoms, she is unable to manage independently at home. Additionally, she is unable to care for her elderly with a history of advanced obstructive pulmonary disease. She is, therefore, admitted for ongoing supportive cares, including antiemetics, analgesics, IV antibiotic therapy with the use of Rocephin in light of multiple allergies, and fluid hydration. We will provide oral intake as tolerated and allow light activity. Full code status is maintained with routine Med/Surg cares. Anticipate transition to oral antibiotic therapy and discharge to home when her acute symptoms show interval improvement. Ezequiel Knox MD /[id number]
[2020-08-14] MEDS ORDERED: Ketorolac 30 MG/ML SDV IVPUSH PRN (06:30)
[2020-08-14] MEDS ORDERED: Metoprolol Succinate 25 MG Tab.ER PO SCH (09:00)
[2020-08-14] MEDS: Acetaminophen 325 MG Tab PO PRN ×2 (09:31→19:19)
[2020-08-14] MEDS ORDERED: diphenhydrAMINE 50 MG/ML SDV IVPUSH PRN (09:50)
[2020-08-14] MEDS ORDERED: EPINEPHrine 1 MG/ML SDV IM PRN (09:50)
[2020-08-14] MEDS: Pantoprazole 40 MG Tab.CR PO SCH (10:03)
[2020-08-14] MEDS: Montelukast 10 MG Tab PO SCH (10:03)
[2020-08-14] MEDS: Fluticasone Propionate Nasal Spray 16 GM Bottle NAS SCH ×2 (10:04→10:07)
[2020-08-14] MEDS: Doxycycline 100 MG in Sodium Chloride 0.9% 100 ML IV SCH ×2 (10:04→21:47)
[2020-08-14] MEDS: Sodium Chloride 0.9% 1,000 ML IV SCH ×2 (15:19→21:47)
[2020-08-14] MEDS: Lactobacillus Rhamnosus GG (Probiotic) Cap PO SCH (17:33)
[2020-08-14] MEDS: Multivitamins with Iron/Calcium/Folic Acid/Minerals Tab PO SCH (20:10)
[2020-08-14] MEDS ORDERED: cefTRIAXone 1 GM in Sodium Chloride 0.9% 50 ML IV SCH (21:00)
[2020-08-14] MEDS ORDERED: cefTRIAXone 1 GM Vial IM SCH (21:00)
[2020-08-15] MEDS: Pantoprazole 40 MG Tab.CR PO SCH (07:29)
[2020-08-15] MEDS: Lactobacillus Rhamnosus GG (Probiotic) Cap PO SCH ×2 (08:27→17:05)
[2020-08-15] MEDS: Cholecalciferol (Vitamin D3) 25 MCG Tab PO SCH (08:27)
[2020-08-15] MEDS: Multivitamins with Iron/Calcium/Folic Acid/Minerals Tab PO SCH ×2 (08:28→21:11)
[2020-08-15] MEDS: Montelukast 10 MG Tab PO SCH (08:28)
[2020-08-15] MEDS: Calcium Carbonate/Vitamin D3 1500 MG-400 Units Tab PO SCH (08:28)
[2020-08-15] MEDS: Fluticasone Propionate Nasal Spray 16 GM Bottle NAS SCH (08:28)
[2020-08-15] MEDS: Vitamin B Complex Tab PO SCH (08:28)
[2020-08-15] MEDS: Sodium Chloride 0.9% 1,000 ML IV SCH (08:43)
[2020-08-15] MEDS: Doxycycline 100 MG in Sodium Chloride 0.9% 100 ML IV SCH (10:03)
[2020-08-15] MEDS: Docusate Sodium 100 MG Cap PO SCH (11:12)
[2020-08-15] MEDS ORDERED: Potassium Chloride 20 MEQ Tab.ER PO ONE (17:00)
--- NOTE | 2020-08-15 18:12 | PCM.PN ---
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 Hardy is doing very well today and had no events overnight. She is having some GI distress with diarrhea. This is likely due to her antibiotic. She was encouraged to eat yogurt. She denies having issues with genital yeast infections. She did have a recorded temperature that was lower than normal. He states that she would be ready to go home tomorrow. He did not feel comfortable going home today. Functional Status: Reports: Pain Controlled, Tolerating Diet, Ambulating, Urinating - Review of Systems General: Reports: Chills, Appetite. Denies: Fever HEENT: Denies: Headaches, Visual Changes Pulmonary: Denies: Shortness of Breath, Cough Cardiovascular: Denies: Chest Pain, Palpitations Gastrointestinal: Reports: Diarrhea. Denies: Abdominal Pain, Constipation, Decreased Appetite, Nausea, Vomiting Genitourinary: Denies: Dysuria, Frequency, Urgency Musculoskeletal: Reports: No Symptoms Skin: Reports: No Symptoms Neurological: Reports: No Symptoms. Denies: Confusion, Dizziness, Headache - Patient Data Vitals - Most Recent: Last Vital Signs Temp 98 F 08/15/20 14:54 Pulse 76 08/15/20 14:54 Resp 16 08/15/20 14:54 BP 168/74 H 08/15/20 14:54 Pulse Ox 100 08/15/20 14:54 Weight - Most Recent: 106 lb 6.392 oz I&O - Last 24 Hours: Intake & Output 08/15/20 08/15/20 08/15/20 06:59 14:59 22:59 Intake Total 900 Output Total 750 1000 Balance -750 -100 Lab Results Last 24 Hours: Laboratory Results - last 24 hr 08/15/20 08/15/20 Range/Units 05:39 05:39 WBC 1.0 L (4.5-11.0) K/uL RBC 3.31 (3.30-5.50) M/uL Hgb 10.4 L D (12.0-15.0) g/dL Hct 31.1 L (36.0-48.0) % MCV 94 (80-98) fL MCH 31 (27-31) pg MCHC 33 (32-36) % Plt Count 30 L (150-400) K/uL Sodium 140 (140-148) mmol/L Potassium 3.4 L (3.6-5.2) mmol/L Chloride 109 H (100-108) mmol/L Carbon Dioxide 22 (21-32) mmol/L Anion Gap 12.4 (5.0-14.0) mmol/L BUN 10 (7-18) mg/dL Creatinine 1.0 (0.6-1.0) mg/dL Est Cr Clr Drug Dosing 37.03 mL/min Estimated GFR (MDRD) 54 L (>60) Glucose 75 (74-106) mg/dL Calcium 7.5 L (8.5-10.1) mg/dL Total Bilirubin 1.0 (0.2-1.0) mg/dL AST 48 H (15-37) U/L ALT 33 (12-78) U/L Alkaline Phosphatase 78 (46-116) U/L Total Protein 4.4 L (6.4-8.2) g/dL Albumin 1.4 L (3.4-5.0) g/dL Globulin 3.0 (2.3-3.5) g/dL Albumin/Globulin Ratio 0.5 L (1.2-2.2) Chandu Results Last 24 Hours: Microbiology 08/14/20 01:00 Urine Culture - Preliminary Urine, Bladder 08/13/20 23:10 Aerobic Blood Culture - Preliminary Blood - Arm, Right NO GROWTH AFTER 1 DAY Anaerobic Blood Culture - Preliminary NO GROWTH AFTER 1 DAY 08/13/20 23:05 Aerobic Blood Culture - Preliminary Blood - Arm, Right NO GROWTH AFTER 1 DAY Anaerobic Blood Culture - Preliminary NO GROWTH AFTER 1 DAY Med Orders - Current: Current Medications Acetaminophen (Acetaminophen 325 Mg Tab) 650 mg PO Q4H PRN PRN Reason: Pain Last Admin: 08/14/20 19:19 Dose: 650 mg Documented by: Calcium Carbonate (Calcium Carbonate/Vitamin D3 1500 Mg-400 Units Tab) 1 tab PO DAILY@0800 [facility] Last Admin: 08/15/20 08:28 Dose: 1 tab Documented by: Cholecalciferol (Cholecalciferol (Vitamin D3) 25 Mcg Tab) 12.5 mcg PO DAILY [facility] Last Admin: 08/15/20 08:27 Dose: 12.5 mcg Documented by: Docusate Sodium (Docusate Sodium 100 Mg Cap) 200 mg PO DAILY [facility] Last Admin: 08/15/20 11:12 Dose: 200 mg Documented by: Doxycycline Hyclate (Doxycycline 100 Mg Cap) 100 mg PO Q12H [facility] Stop: 08/24/20 21:01 Fluticasone Propionate (Fluticasone Propionate Nasal [place] 16 Gm Bottle) 0 gm BRITTNEE DAILY [facility] Last Admin: 08/15/20 08:28 Dose: Not Given Documented by: Ketorolac Tromethamine (Ketorolac 30 Mg/Ml Sdv) 30 mg IVPUSH Q6H PRN PRN Reason: Pain Stop: 08/19/20 06:31 Lactobacillus Rhamnosus (Lactobacillus Rhamnosus Gg (Probiotic) Cap) 1 cap PO BIDMEALS [facility] Last Admin: 08/15/20 17:05 Dose: 1 cap Documented by: Metoprolol Succinate (Metoprolol Succinate 50 Mg Tab.Er) 50 mg PO DAILY [facility] Montelukast Sodium (Montelukast 10 Mg Tab) 10 mg PO DAILY [facility] Last Admin: 08/15/20 08:28 Dose: 10 mg Documented by: Multivitamins/Minerals (Multivitamins With Iron/Calcium/Folic Acid/Minerals Tab) 0.5 tab PO BID [facility] Last Admin: 08/15/20 08:28 Dose: 0.5 tab Documented by: Ondansetron HCl (Ondansetron 4 Mg/2 Ml Sdv) 4 mg IVPUSH Q4H PRN PRN Reason: Nausea/Vomiting Pantoprazole Sodium (Pantoprazole 40 Mg Tab.Cr) 40 mg PO ACBREAKFAST [facility] Last Admin: 08/15/20 07:29 Dose: 40 mg Documented by: Vitamin B Complex (Vitamin B Complex Tab) 1 each PO DAILY [facility] Last Admin: 08/15/20 08:28 Dose: 1 each Documented by: Discontinued Medications Acetaminophen (Acetaminophen 325 Mg Tab) 650 mg PO NOW ONE Stop: 08/13/20 23:04 Last Admin: 08/13/20 23:15 Dose: 650 mg Documented by: Ceftriaxone Sodium (Ceftriaxone 1 Gm Vial) 1 gm IM BEDTIME [facility] Diphenhydramine HCl (Diphenhydramine 50 Mg/Ml Sdv) 50 mg IVPUSH ONETIME PRN PRN Reason: Anaphylaxis Epinephrine HCl (Epinephrine 1 Mg/Ml Sdv) 0.5 mg IM ONETIME PRN PRN Reason: anaphylaxis Hydromorphone HCl (Hydromorphone 0.5 Mg/0.5 Ml Syringe) 0.5 mg IVPUSH ONETIME ONE Stop: 08/14/20 02:19 Last Admin: 08/14/20 02:26 Dose: 0.5 mg Documented by: Sodium Chloride (Normal Saline) 1,000 mls @ 250 mls/hr IV ASDIRECTED [facility] Last Admin: 08/13/20 23:04 Dose: 250 mls/hr Documented by: Ceftriaxone Sodium 2 gm/ (Sodium Chloride) 50 mls @ 100 mls/hr IV ONETIME ONE Stop: 08/14/20 00:56 Last Admin: 08/14/20 00:50 Dose: 100 mls/hr Documented by: Sodium Chloride (Normal Saline) 1,000 mls @ 150 mls/hr IV ASDIRECTED [facility] Last Admin: 08/14/20 00:44 Dose: 250 mls/hr Documented by: Sodium Chloride (Normal Saline) 1,000 mls @ 150 mls/hr IV ASDIRECTED [facility] Last Admin: 08/15/20 08:43 Dose: 150 mls/hr Documented by: Doxycycline Hyclate 100 mg/ (Sodium Chloride) 100 mls @ 100 mls/hr IV Q12H [facility] Stop: 08/23/20 22:59 Last Admin: 08/15/20 10:03 Dose: 100 mls/hr Documented by: Ceftriaxone Sodium 1 gm/ (Sodium Chloride) 50 mls @ 100 mls/hr IV BEDTIME [facility] Ketorolac Tromethamine (Ketorolac 30 Mg/Ml Sdv) 30 mg IVPUSH ONETIME ONE Stop: 08/14/20 00:37 Last Admin: 08/14/20 00:47 Dose: 30 mg Documented by: Metoprolol Succinate (Metoprolol Succinate 25 Mg Tab.Er) 25 mg PO DAILY [facility] Last Admin: 08/14/20 09:36 Dose: Not Given Documented by: Ondansetron HCl (Ondansetron 4 Mg/2 Ml Sdv) 4 mg IVPUSH ONETIME ONE Stop: 08/13/20 23:06 Last Admin: 08/13/20 23:15 Dose: 4 mg Documented by: Potassium Chloride (Potassium Chloride 20 Meq Tab.Er) 20 meq PO ONETIME ONE Stop: 08/15/20 17:01 Last Admin: 08/15/20 17:05 Dose: 20 meq Documented by: - Exam General: Alert, Oriented, Cooperative, No Acute Distress HEENT: Pupils Equal, EOMI, Mucous Membr. Moist/[place] Lungs: Clear to Auscultation, Normal Respiratory Effort Cardiovascular: Regular Rate, Regular Rhythm GI/Abdominal Exam: Normal Bowel Sounds, Soft, Non-Tender Back Exam: Normal Inspection Extremities: Normal Inspection. No: Pedal Edema Skin: Warm, Dry, Intact Neurological: No New Focal Deficit Psy/Mental Status: Alert, Normal Affect, Normal Mood - Patient Data Lab Results Last 24 hrs: Laboratory Results - last 24 hr 08/15/20 08/15/20 Range/Units 05:39 05:39 WBC 1.0 L (4.5-11.0) K/uL RBC 3.31 (3.30-5.50) M/uL Hgb 10.4 L D (12.0-15.0) g/dL Hct 31.1 L (36.0-48.0) % MCV 94 (80-98) fL MCH 31 (27-31) pg MCHC 33 (32-36) % Plt Count 30 L (150-400) K/uL Sodium 140 (140-148) mmol/L Potassium 3.4 L (3.6-5.2) mmol/L Chloride 109 H (100-108) mmol/L Carbon Dioxide 22 (21-32) mmol/L Anion Gap 12.4 (5.0-14.0) mmol/L BUN 10 (7-18) mg/dL Creatinine 1.0 (0.6-1.0) mg/dL Est Cr Clr Drug Dosing 37.03 mL/min Estimated GFR (MDRD) 54 L (>60) Glucose 75 (74-106) mg/dL Calcium 7.5 L (8.5-10.1) mg/dL Total Bilirubin 1.0 (0.2-1.0) mg/dL AST 48 H (15-37) U/L ALT 33 (12-78) U/L Alkaline Phosphatase 78 (46-116) U/L Total Protein 4.4 L (6.4-8.2) g/dL Albumin 1.4 L (3.4-5.0) g/dL Globulin 3.0 (2.3-3.5) g/dL Albumin/Globulin Ratio 0.5 L (1.2-2.2) Result Diagrams: 08/15/20 05:39 08/15/20 05:39 Chandu Results Last 24 hrs: Microbiology 08/14/20 01:00 Urine Culture - Preliminary Urine, Bladder 08/13/20 23:10 Aerobic Blood Culture - Preliminary Blood - Arm, Right NO GROWTH AFTER 1 DAY Anaerobic Blood Culture - Preliminary NO GROWTH AFTER 1 DAY 08/13/20 23:05 Aerobic Blood Culture - Preliminary Blood - Arm, Right NO GROWTH AFTER 1 DAY Anaerobic Blood Culture - Preliminary NO GROWTH AFTER 1 DAY Sepsis Event Note - Evaluation Sepsis Screening Result: No Definite Risk - Focused Exam Vital Signs: Vital Signs Temp Pulse Resp BP Pulse Ox 08/15/20 14:54 98 F 76 16 168/74 H 100 08/15/20 11:00 97.2 F 65 16 145/63 H 100 08/15/20 07:00 96.7 F L 73 16 142/61 H 100 - Problem List Review Problem List Initiated/Reviewed/Updated: Yes - My Orders Last 24 Hours: My Active Orders 08/14/20 21:00 Multivitamins w-Iron/Ca/FA/Min [Thera M Plus] 0.5 tab PO BID 08/15/20 08:00 Calcium Carbonate/Vitamin D3 [Caltrate 600+D 1500 MG-400 Units] 1 tab PO DAILY@0800 08/15/20 09:00 Cholecalciferol (Vitamin D3) [Vitamin D3] 12.5 mcg PO DAILY Vitamin B Complex 1 each PO DAILY 08/15/20 09:45 Docusate Sodium [Colace] 200 mg PO DAILY 08/15/20 15:59 Communication Order [RC] ASDIRECTED 08/15/20 17:15 Metoprolol Succinate [Toprol XL] 50 mg PO DAILY 08/15/20 21:00 Doxycycline [Vibramycin] 100 mg PO Q12H 08/16/20 05:00 CBC WITH AUTO DIFF [HEME] 0500 - Plan Plan:: Assessment: 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 Antibiotics will be given for total of 10 days -She had originally expressed that she may be allergic to doxycycline but could not remember what her reaction was. Patient was taken in starting doxycycline on her but she did not have any reaction. She does have some GI distress with the doxycycline and that may have been what she thought was the allergy. Was counseled on this Possible urinary tract infection -Urine cultures are growing gram-negative rods which likely represent E. coli -Doxycycline she is being treated with for anaplasmosis will cover E. coli with good effect -Patient denies symptoms of urinary tract infection including urgency and frequency so could be possible contaminant VTE prophylaxis: SCDs and ambulation GI prophylaxis: Is currently taking her home Protonix Diet: Regular diet Plan: Her antibiotics have been changed to oral and she will be continued on them for a total of 10 days. This should cover her suspected Anaplasma infection as well as possible UTI. She will be discharged in the morning. Disposition: She will go home with self-care Kathy Aponte DO
[2020-08-15] MEDS: Metoprolol Succinate 50 MG Tab.ER PO SCH (18:19)
[2020-08-15] MEDS: Doxycycline 100 MG Cap PO SCH (21:11)
[2020-08-16] MEDS: Acetaminophen 325 MG Tab PO PRN (03:45)
[2020-08-16 07:38] VITALS: BP 143/73; PULSE 58
[2020-08-16] MEDS: Calcium Carbonate/Vitamin D3 1500 MG-400 Units Tab PO SCH (07:44)
[2020-08-16] MEDS: Lactobacillus Rhamnosus GG (Probiotic) Cap PO SCH (07:44)
[2020-08-16] MEDS: Pantoprazole 40 MG Tab.CR PO SCH (07:44)
[2020-08-16 09:11] LABS: LYME IGG/IGM AB <0.91 ISR (0.00-0.90)
[2020-08-16] MEDS: Fluticasone Propionate Nasal Spray 16 GM Bottle NAS SCH (09:20)
[2020-08-16] MEDS: Docusate Sodium 100 MG Cap PO SCH (09:21)
[2020-08-16] MEDS: Montelukast 10 MG Tab PO SCH (09:22)
[2020-08-16] MEDS: Multivitamins with Iron/Calcium/Folic Acid/Minerals Tab PO SCH (09:23)
[2020-08-16] MEDS: Vitamin B Complex Tab PO SCH (09:24)
[2020-08-16] MEDS: Metoprolol Succinate 50 MG Tab.ER PO SCH (09:24)
[2020-08-16] MEDS: Doxycycline 100 MG Cap PO SCH (09:25)
[2020-08-16] MEDS: Cholecalciferol (Vitamin D3) 25 MCG Tab PO SCH (09:26)
[2020-08-16 15:11] LABS: BABESIA MICROTI IGG <1:10 (Neg:<1:10); BABESIA MICROTI IGM <1:10 (Neg:<1:10)
--- NOTE | 2020-08-17 18:13 | PCM.DCSUM1 ---
Discharge Summary - Hospital Course Free Text/Narrative:: Ms. Hardy presented with fever up to 103, headache, chills, blurry vision, and anorexia for 3 to 4 days. [place] labs she was pancytopenic. Anaplasmosis was suspected and these labs were taken. She also had a urinalysis drawn that grew Klebsiella ESBL. She had not been having signs or symptoms of urinary tract infection at the time of admission. She was treated with IV antibiotics and IV fluids. On her day of discharge she was having no complaints and feeling significantly better. It was explained to her that the Klebsiella be adequately treated with the regimen for anaplasmosis so her antibiotic did not need to change but she was encouraged to complete the entire course. Diagnosis: Stroke: No Modified Rebeca Scale: No Symptoms at All Modified [employer] Scale Score: 0 - Discharge Data Discharge Date: 08/16/20 Discharge Disposition: Home, Self-Care 01 Condition: Stable - Referral to Home Health Primary Care Physician: Mahendra Gentile MD - Discharge Diagnosis/Problem(s) (1) Anaplasmosis SNOMED Code(s): 78625295 ICD Code: A77.49 - OTHER EHRLICHIOSIS Status: Acute (2) Urinary tract infection due to ESBL Klebsiella SNOMED Code(s): 556017340187489 ICD Code: N39.0 - URINARY TRACT INFECTION, SITE NOT SPECIFIED; B96.89 - OTH BACTERIAL AGENTS THE CAUSE OF DISEASES CLASSD ELSWHR Status: Acute - Discharge Plan Prescriptions/Med Rec: Doxycycline [Vibramycin] 100 mg PO Q12H #16 cap Home Medications: Home Meds Cholecalciferol (Vitamin D3) [Vitamin D3] 400 unit PO DAILY 12/04/13 [History] Diclofenac Sodium [Voltaren 1% Gel] 4 g TP QID PRN 12/04/13 [History] Multivit-Min/FA/Lycopene/Lut [Centrum Silver] 0.5 tab PO BID 12/04/13 [History] Calcium Carb/Vitamin D3/Vit K1 [Viactiv Soft Chew] 1 tab PO QAM 10/08/17 [Hi story] L.acidoph,Paracasei, B.lactis [Probiotic] 1 cap PO BIDMEALS 10/08/17 [History] Vitamin B Complex [B Complex] 1 tab PO DAILY 12/19/18 [History] Fluticasone Propionate [Flonase] 2 spray BRITTNEE DAILY 05/16/19 [History] Calcium Carb/Vitamin D3/Vit K1 [Viactiv 650 mg-12.5 Mcg Chew] 1 tab PO DAILY 08/14/20 [History] Metoprolol Succinate 50 mg PO DAILY 08/14/20 [History] Montelukast [Singulair] 10 mg PO DAILY 08/14/20 [History] Omeprazole/Sodium Bicarbonate [Omeprazole-Bicarb 40-1,100 Cap] 40 mg PO DAILY 08/14/20 [History] Doxycycline [Vibramycin] 100 mg PO Q12H #16 cap 08/16/20 [Rx] Patient Handouts: Ehrlichiosis and Anaplasmosis, [id number], Doxycycline delayed-release capsules Forms: ED Department Discharge Referrals: Mahendra Gentile MD [Primary Care Provider] - 08/19/20 3:00 pm (Please arrive at 2:45 for lab draw prior to your appointment with Dr. 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 Hardy was feeling fantastic on the day of discharge and had no complaints. She was ready to go and walking around the halls in her room all morning. Functional Status: Reports: Tolerating Diet, Ambulating, Urinating. Denies: New Symptoms - Review of Systems General: Reports: No Symptoms. Denies: Fever, Weakness, Fatigue, Malaise, Chills HEENT: Reports: No Symptoms. Denies: Headaches, Visual Changes Pulmonary: Reports: No Symptoms. Denies: Shortness of Breath, Cough Cardiovascular: Reports: No Symptoms. Denies: Chest Pain, Palpitations Gastrointestinal: Reports: No Symptoms. Denies: Abdominal Pain, Constipation, Diarrhea, Nausea, Vomiting Genitourinary: Reports: No Symptoms. Denies: Dysuria, Frequency, Urgency Musculoskeletal: Reports: No Symptoms. Denies: Neck Pain, Back Pain Skin: Reports: No Symptoms Neurological: Reports: No Symptoms. Denies: Confusion, Dizziness, Headache Psychiatric: Reports: No Symptoms. Denies: Confusion - Patient Data Vitals - Most Recent: Last Vital Signs Temp 96 F L 08/16/20 07:37 Pulse 58 L 08/16/20 09:24 Resp 16 08/16/20 07:37 BP 143/73 H 08/16/20 09:24 Pulse Ox 100 08/16/20 07:37 Weight - Most Recent: 106 lb 6.392 oz REG Results - Last 24 hrs: Microbiology 08/13/20 23:10 Aerobic Blood Culture - Preliminary Blood - Arm, Right NO GROWTH AFTER 3 DAYS Anaerobic Blood Culture - Preliminary NO GROWTH AFTER 3 DAYS 08/13/20 23:05 Aerobic Blood Culture - Preliminary Blood - Arm, Right NO GROWTH AFTER 3 DAYS Anaerobic Blood Culture - Preliminary NO GROWTH AFTER 3 DAYS Med Orders - Current: Current Medications Discontinued Medications Acetaminophen (Acetaminophen 325 Mg Tab) 650 mg PO NOW ONE Stop: 08/13/20 23:04 Last Admin: 08/13/20 23:15 Dose: 650 mg Documented by: Acetaminophen (Acetaminophen 325 Mg Tab) 650 mg PO Q4H PRN PRN Reason: Pain Last Admin: 08/16/20 03:45 Dose: 650 mg Documented by: Calcium Carbonate (Calcium Carbonate/Vitamin D3 1500 Mg-400 Units Tab) 1 tab PO DAILY@0800 [facility] Last Admin: 08/16/20 07:44 Dose: 1 tab Documented by: Ceftriaxone Sodium (Ceftriaxone 1 Gm Vial) 1 gm IM BEDTIME [facility] Cholecalciferol (Cholecalciferol (Vitamin D3) 25 Mcg Tab) 12.5 mcg PO DAILY [facility] Last Admin: 08/16/20 09:26 Dose: 12.5 mcg Documented by: Diphenhydramine HCl (Diphenhydramine 50 Mg/Ml Sdv) 50 mg IVPUSH ONETIME PRN PRN Reason: Anaphylaxis Docusate Sodium (Docusate Sodium 100 Mg Cap) 200 mg PO DAILY [facility] Last Admin: 08/16/20 09:21 Dose: 200 mg Documented by: Doxycycline Hyclate (Doxycycline 100 Mg Cap) 100 mg PO Q12H [facility] Stop: 08/24/20 21:01 Last Admin: 08/16/20 09:25 Dose: 100 mg Documented by: Epinephrine HCl (Epinephrine 1 Mg/Ml Sdv) 0.5 mg IM ONETIME PRN PRN Reason: anaphylaxis Fluticasone Propionate (Fluticasone Propionate Nasal [place] 16 Gm Bottle) 0 gm BRITTNEE DAILY [facility] Last Admin: 08/16/20 09:20 Dose: Not Given Documented by: Hydromorphone HCl (Hydromorphone 0.5 Mg/0.5 Ml Syringe) 0.5 mg IVPUSH ONETIME ONE Stop: 08/14/20 02:19 Last Admin: 08/14/20 02:26 Dose: 0.5 mg Documented by: Sodium Chloride (Normal Saline) 1,000 mls @ 250 mls/hr IV ASDIRECTED [facility] Last Admin: 08/13/20 23:04 Dose: 250 mls/hr Documented by: Ceftriaxone Sodium 2 gm/ (Sodium Chloride) 50 mls @ 100 mls/hr IV ONETIME ONE Stop: 08/14/20 00:56 Last Admin: 08/14/20 00:50 Dose: 100 mls/hr Documented by: Sodium Chloride (Normal Saline) 1,000 mls @ 150 mls/hr IV ASDIRECTED [facility] Last Admin: 08/14/20 00:44 Dose: 250 mls/hr Documented by: Sodium Chloride (Normal Saline) 1,000 mls @ 150 mls/hr IV ASDIRECTED [facility] Last Admin: 08/15/20 08:43 Dose: 150 mls/hr Documented by: Doxycycline Hyclate 100 mg/ (Sodium Chloride) 100 mls @ 100 mls/hr IV Q12H [facility] Stop: 08/23/20 22:59 Last Admin: 08/15/20 10:03 Dose: 100 mls/hr Documented by: Ceftriaxone Sodium 1 gm/ (Sodium Chloride) 50 mls @ 100 mls/hr IV BEDTIME [facility] Ketorolac Tromethamine (Ketorolac 30 Mg/Ml Sdv) 30 mg IVPUSH ONETIME ONE Stop: 08/14/20 00:37 Last Admin: 08/14/20 00:47 Dose: 30 mg Documented by: Ketorolac Tromethamine (Ketorolac 30 Mg/Ml Sdv) 30 mg IVPUSH Q6H PRN PRN Reason: Pain Stop: 08/19/20 06:31 Lactobacillus Rhamnosus (Lactobacillus Rhamnosus Gg (Probiotic) Cap) 1 cap PO BIDMEALS [facility] Last Admin: 08/16/20 07:44 Dose: 1 cap Documented by: Metoprolol Succinate (Metoprolol Succinate 25 Mg Tab.Er) 25 mg PO DAILY [facility] Last Admin: 08/14/20 09:36 Dose: Not Given Documented by: Metoprolol Succinate (Metoprolol Succinate 50 Mg Tab.Er) 50 mg PO DAILY [facility] Last Admin: 08/16/20 09:24 Dose: 50 mg Documented by: Montelukast Sodium (Montelukast 10 Mg Tab) 10 mg PO DAILY [facility] Last Admin: 08/16/20 09:22 Dose: Not Given Documented by: Multivitamins/Minerals (Multivitamins With Iron/Calcium/Folic Acid/Minerals Tab) 0.5 tab PO BID [facility] Last Admin: 08/16/20 09:23 Dose: 0.5 tab Documented by: Ondansetron HCl (Ondansetron 4 Mg/2 Ml Sdv) 4 mg IVPUSH ONETIME ONE Stop: 08/13/20 23:06 Last Admin: 08/13/20 23:15 Dose: 4 mg Documented by: Ondansetron HCl (Ondansetron 4 Mg/2 Ml Sdv) 4 mg IVPUSH Q4H PRN PRN Reason: Nausea/Vomiting Pantoprazole Sodium (Pantoprazole 40 Mg Tab.Cr) 40 mg PO ACBREAKFAST [facility] Last Admin: 08/16/20 07:44 Dose: 40 mg Documented by: Potassium Chloride (Potassium Chloride 20 Meq Tab.Er) 20 meq PO ONETIME ONE Stop: 08/15/20 17:01 Last Admin: 08/15/20 17:05 Dose: 20 meq Documented by: Vitamin B Complex (Vitamin B Complex Tab) 1 each PO DAILY [facility] Last Admin: 08/16/20 09:24 Dose: 1 each Documented by: - Exam General: Reports: Alert, Oriented, Cooperative, No Acute Distress HEENT: Reports: Pupils Equal, EOMI, Mucous Membr. Moist/[place] Lungs: Reports: Clear to Auscultation, Normal Respiratory Effort Cardiovascular: Reports: Regular Rate, Regular Rhythm GI/Abdominal Exam: Normal Bowel Sounds, Soft, Non-Tender, No Distention Back Exam: Reports: Normal Inspection Extremities: Normal Inspection, Non-Tender, No Pedal Edema Skin: Reports: Warm, Dry, Intact Neurological: Reports: No New Focal Deficit Psy/Mental Status: Reports: Alert, Normal Affect, Normal Mood
== END 2020-08-16 11:18 | disposition home or self-care (01) | DRG 868 ==
LOC: JP.ED 20:00 → JP.MS 08-14 02:30
PROVIDERS: ADMIT Internal Medicine; ATTEND Internal Medicine
DX: A77.49 Other ehrlichiosis (principal); J30.9 Allergic rhinitis, unspecified; N39.0 Urinary tract infection, site not specified; B96.20 Unspecified Escherichia coli [E. coli] as the cause of diseases classified elsewhere; I10 Essential (primary) hypertension; M19.90 Unspecified osteoarthritis, unspecified site; M81.0 Age-related osteoporosis without current pathological fracture; Z90.49 Acquired absence of other specified parts of digestive tract; Z90.710 Acquired absence of both cervix and uterus; Z88.0 Allergy status to penicillin; Z88.2 Allergy status to sulfonamides; Z88.8 Allergy status to other drugs, medicaments and biological substances; Z88.1 Allergy status to other antibiotic agents; Z79.899 Other long term (current) drug therapy; D69.6 Thrombocytopenia, unspecified; K21.9 Gastro-esophageal reflux disease without esophagitis; Z09 Encounter for follow-up examination after completed treatment for conditions other than malignant neoplasm; Z86.010 Personal history of colon polyps; H54.7 Unspecified visual loss; M85.80 Other specified disorders of bone density and structure, unspecified site; Z98.42 Cataract extraction status, left eye; Z98.41 Cataract extraction status, right eye; Z90.722 Acquired absence of ovaries, bilateral; Z98.890 Other specified postprocedural states; Z20.822 Contact with and (suspected) exposure to COVID-19
CPT/HCPCS: 0241U; 36415; 80048; 80053; 81001; 83605; 85025; 85027; 86140; 86618; 86666; 86753; 87040; 87086; 87088; 87186; 99285; A9270-GY; J0696; J1170; J1885; J2405; J3490; J7030